=== PATIENT | male | born 1945 | race Caucasian/White ===

== ENCOUNTER → 2017-11-25 | Outpatient (CLI) | payer OTHER, BC ==
[~2017-11-25] MED LIST: NS 100 ML IV 100 ML IV ONE
[2017-11-25 08:29] LABS: CREATININE 0.97 mg/dL (0.70-1.30)
--- NOTE | 2017-11-25 09:17 | CT ---
CT abdomen and pelvis with contrast Indication: Acute hematuria Technique: Helical CT images of the abdomen and pelvis were obtained with IV contrast. Reformatted im ages in the coronal and sagittal planes were also generated for review. Comparison: None Findings: Lung bases are clear. Degenerative changes throughout the spine are noted. No aggressive os seous lesions are identified. The liver, gallbladder, spleen, pancreas and adrenals are unremarkable. Both kidneys enhance symmetri turner without demonstrable focal lesion or hydronephrosis. No definite radiopaque urinary tract stone s are identified, given limitations of a contrast-enhanced exam. The prostate gland is moderately enl arged and bulges into the base of the urinary bladder. The urinary bladder is otherwise grossly unrem arkable. There is no bowel inflammation or obstruction. The appendix is normal. The IVC and abdominal aorta ar e normal. No free air, free fluid or lymphadenopathy is identified. Impression: Moderate enlargement of the prostate, which bulges into the base of the urinary bladder. Lab correlat ion with PSA levels recommended. Otherwise, no definite urolithiasis or additional significant abnormality to explain patient's hematu mony. Reported By:
== END ==
LOC: RAD 08:02
PROVIDERS: ATTEND Internal Medicine
DX: N30.01 Acute cystitis with hematuria (principal)
CPT/HCPCS: 36415; 74177; 82565; 84520; A4222